=== PATIENT | female | born 1960 | race Caucasian/White ===

== ENCOUNTER 2022-02-23 06:56 | Emergency (ER) | payer OTHER ==
[2022-02-23] MEDS ORDERED: EPINEPHrine 1 MG/1 ML Amp SUBCUT ONE (07:13)
[2022-02-23 08:23] LABS: ANION GAP 14.7 mmol/L (5-15)
[2022-02-23] MEDS ORDERED: Sodium Chloride 0.9% 500 ML IV ONE (08:33)
== END 2022-02-23 08:22 | disposition short-term general hospital (02) ==
LOC: VM.ED 06:56
DX: N93.9 Abnormal uterine and vaginal bleeding, unspecified (principal)
CPT/HCPCS: 80053; 83735; 84100; 85025; 85610; 85730; 99283; 99285; J7030